=== PATIENT | female | born 1970 | race Caucasian/White ===

== ENCOUNTER → 2019-07-20 | Outpatient (CLI) | payer BC ==
--- NOTE | 2019-07-28 17:29 | MR ---
EXAMINATION TYPE: MR ankle RT wo con DATE OF EXAM: 07/20/2019 COMPARISON: None available HISTORY: 49-year-old female Lt ankle pain, medial aspect. Chronic insertional posterior tibial tendin opathy. TECHNIQUE: Multiplanar, multisequence images of the left ankle were obtained without IV contrast. FINDINGS: Small tibiotalar joint effusion. There is a 1.6 x 1.5 x 0.5 cm ganglion cyst along the dorsal lateral aspect of the hindfoot adjacent to the talonavicular joint likely arising from the sinus Tarsi. Some dorsal capsular thickening and mild intermediate signal at the dorsal talonavicular joint. Achilles tendon and origin of the plantar fascia are intact. Evaluation of the osseous structures show no evidence for acute fracture or dislocation. There is a type II accessory navicular. Moderate tenosynovial fluid along the inframalleolar posterio r tibial tendon without discrete tear. No significant edema within the accessory ossicle. There is some edema along the deep posterior deltoid ligament fibers which appear intact. Some increa sed signal along the calcaneal insertion of the superomedial ligamenta (for example, coronal T2 FS im age 21). Some additional increased signal along the inferoplantar longitudinal and medioplantar obli que ligaments (for example, axial T2 FS image 14 and sagittal T2 FS image 10). No retracted tear of the lateral peroneal tendons. Lateral ligamentous complex appears grossly intact . The syndesmosis appears intact. Prominent dorsal talar head hyperostosis abutting the course of the e xtensor hallucis longus. Otherwise, dorsal extensor tendons appear intact. No evidence for acute or healing fracture. Preserved fat signal within the sinus tarsi. Tarsal tunnel is clear. IMPRESSION: 1. Type II accessory navicular without any significant edema or irregularity of the ossicle. There is some edema within the connective tissue bridging the ossicle to the remainder of the navicular which could indicate excessive movement and reactive edema. 2. Moderate insertional posterior tibial tenosynovitis but without discrete tear. 3. Areas of increased signal along all 3 ligaments of the spring ligament complex suggests ligamentou s sprains, possible partial tears. 4. Dorsal talar beaking with adjacent mild capsular edema and thickening. Correlate for a mild capsul ar sprain. The bony beak also contacts the extensor hallucis longus. A 1.6 cm ganglion cyst here, pro bably arises from the underlying sinus tarsi. 5. Low-grade sprain of the deep deltoid ligament fibers.
== END | disposition home or self-care (01) ==
LOC: RADMRIMAIN 08:10
PROVIDERS: ATTEND Podiatrist Foot & Ankle Surgery
DX: M65.9 Synovitis and tenosynovitis, unspecified (principal); S93.401A Sprain of unspecified ligament of right ankle, initial encounter; M67.471 Ganglion, right ankle and foot; Q74.0 Other congenital malformations of upper limb(s), including shoulder girdle; Q74.2 Other congenital malformations of lower limb(s), including pelvic girdle